=== PATIENT | female | born 2000 | race Caucasian/White ===

== ENCOUNTER 2023-02-12 15:06 | Emergency (ER) | payer SELFPAY ==
[~2023-02-12] VITALS: Ht 167.6 cm; Wt 96.6 kg
[2023-02-12] MEDS ORDERED: KETOROLAC 60 MG/2 ML VIAL IM ONE ×2 (15:20→16:05)
[2023-02-12 15:37] VITALS: BP 114/73; PULSE 101; RESP 20; TEMP 97.8; O2SAT 96
[2023-02-12] MEDS ORDERED: ONDANSETRON 4 MG ODT PO ONE (16:05)
[2023-02-12] MEDS ORDERED: IBUP-2213 PO (16:14)
[2023-02-12] MEDS ORDERED: ONDA8TAB87 PO (16:14)
== END 2023-02-12 16:47 | disposition home or self-care (01) ==
LOC: MED 15:06
DX: R10.13 Epigastric pain (principal); R11.2 Nausea with vomiting, unspecified; R19.7 Diarrhea, unspecified; R50.9 Fever, unspecified; Z79.899 Other long term (current) drug therapy
CPT/HCPCS: 81002; 81025; 96372; 99283; J1885; Q0162